=== PATIENT | female | born 1965 | race Caucasian/White ===

== ENCOUNTER 2017-05-20 19:32 | Emergency (ER) | payer BC ==
[~2017-05-20] VITALS: Ht 157.5 cm; Wt 86.0 kg
[~2017-05-20 19:32] MED LIST: ACET325T33 PO; CYCL-117 PO; METF500T4 PO; OMEP20TA42 PO
[2017-05-20 20:02] VITALS: Ht 157.5 cm; Wt 86.0 kg
[2017-05-20] MEDS ORDERED: TRIMETHOPRIM/SULFAMETHOX (DS) TAB PO ONE (22:00)
[2017-05-20] MEDS ORDERED: SULF1TAB31 PO (22:00)
[2017-05-20] MEDS ORDERED: CEPHALEXIN 500 MG CAP PO ONE (22:00)
--- NOTE | 2017-05-20 22:00 | ERD ---
ER Documentation Chief Complaint Date/Time DATE: 05/20/17 Chief Complaint Swelling/redness to upper back HPI The patient is a 51-year-old male with a history of diabetes mellitus, hyperlipidemia and vasculitis, who presents to the Emergency Department with complaint of upper back pain and swelling. The patient reports that for a "long time" she has had a sebaceous cyst to her upper back. Approximately 8 days ago she noted increased swelling to the area, and therefore tried to pop the cyst. However, since, she has developed increased pain, swelling and tenderness to the area. She admits to mild associated warmth and erythema as well. She rates her current pain as 7/10, noting that she has not yet taken any medication for pain relief. Due to her symptoms, she saw her primary medical provider for evaluation, who stated that he will request authorization to send her to a petroleum refinery worker for removal. The patient notes that she has not yet received the authorization, and therefore presents for evaluation. She denies any fevers, sweats, chills, nausea, vomiting. Denies any bleeding or purulent drainage from the site. No other complaints at this time. ROS All systems reviewed and are negative except as per history of present illness. Medications Home Meds Active Scripts Ibuprofen* (Motrin*) 600 Mg Tab, 600 MG PO Q6, #20 TAB Prov:IMAN MAC PA-C 05/20/17 Cephalexin* (Cephalexin*) 500 Mg Capsule, 500 MG PO Q6, #28 CAP Prov:IMAN MAC PA-C 05/20/17 Sulfamethoxazole/Trimethoprim* (Bactrim Ds* Tablet) 1 Each Tablet, 1 TAB PO BID , #10 TAB Prov:IMAN MAC PA-C 05/20/17 Acetaminophen* (Tylenol*) 325 Mg Tablet, 1 TAB PO Q6 Y for PAIN AND OR ELEVATED TEMP, #20 TAB Prov:NATALY VERDUGO PA-C 07/15/16 Reported Medications Omeprazole (Omeprazole) 20 Mg Tablet.dr, 20 MG PO BID 04/01/12 Cyclobenzaprine Hcl (Flexeril) 10 Mg Tablet, 1 TAB PO TID PRN PAIN 03/31/12 Metformin Hcl* (Metformin Hcl*) 500 Mg Tablet, 500 MG PO BID, 0 Refills 04/05/11 Allergies Allergies: Coded Allergies: No Known Drug Allergies (Verified Allergy, 03/31/12) PMhx/Soc History of Surgery: Yes (CHOLECYSTECTOMY) Anesthesia Reaction: No Hx Neurological Disorder: No Hx Respiratory Disorders: No Hx Cardiac Disorders: No Hx Psychiatric Problems: No Hx Miscellaneous Medical Probl: Yes (VASCULITIS, DM) Hx Alcohol Use: No Hx Substance Use: No Hx Tobacco Use: No Physical Exam Vitals Vital Signs Date Time Temp Pulse Resp B/P Pulse Ox O2 Delivery O2 Flow Rate FiO2 05/20/17 23:07 97.6 62 18 136/73 97 Room Air 05/20/17 20:02 98.8 78 19 151/84 100 Physical Exam Const: Well-developed, well-nourished, in no acute distress. Head: Atraumatic Eyes: Normal Conjunctiva ENT: Normal External Ears, Nose and Mouth. Neck: Full range of motion. Supple. Resp: Clear to auscultation bilaterally Cardio: Regular rate and rhythm Abd: Soft, non tender, non distended. Normal bowel sounds Skin: Sebaceous cyst to the upper back with mild overlying erythema, warmth, swelling and tenderness. Central induration noted, with no current fluctuance. No drainage. No bleeding. No lymphatic streaking. Back: No midline or flank tenderness Ext: No clubbing, cyanosis, or edema Neur: Awake and alert Psych: Cooperative. Appropriate. Results 24 hrs Current Medications Medications (Trade) Dose Ordered Sig/Daron Route PRN Reason Start Time Stop Time Status Last Admin Dose Admin Trimethoprim/ Sulfamethoxazole (Bactrim (Ds)) 1 tab ONCE ONCE PO 05/20/17 22:00 05/20/17 22:01 DC 05/20/17 23:07 Cephalexin (Keflex) 500 mg ONCE ONCE PO 05/20/17 22:00 05/20/17 22:01 DC 05/20/17 23:06 Procedures/MDM This is a 51-year-old female presenting to the Emergency Department with an infected sebaceous cyst to the upper back. The patient notes that she has had this cyst for some time, but tried to pop it 8 days ago. Since, she has developed increased discomfort and swelling to the area. The area was firm and indurated, with no palpable fluctuance. No drainage. No bleeding. No lymphatic streaking. No crepitus. No pain out of proportion to examination. The patients oropharynx and airway were stable, and she was afebrile with no recent history of fevers or chills. The patient was given a dose of Bactrim DS and Keflex in the ED. At this time, patient's sebaceous cyst has no fluctuance, and therefore no indication for I&D at this time. The patient is in stable condition and therefore can be discharged home with prescriptions for Ibuprofen , Keflex and Bactrim DS and strict return precautions for signs of deteriorating or worsening condition. The patient is strongly advised to follow up with a primary care provider within 2 days for reevaluation and further management, or return to the ER sooner for worsening symptoms. Additionally, she is advised to return sooner if she notices the erythema spreading beyond the current borders. I shared my medical decision making and plan with the patient and she verbally understands and agrees with the plan for further observation and care as an outpatient. At the time of discharge all questions were answered. Departure Diagnosis: Primary Impression: Infected sebaceous cyst Condition: Stable Patient Instructions: Sebaceous Cyst, Infected (Abx Tx) Additional Instructions: Call your primary care doctor TOMORROW for an appointment during the next 1-2 days.See the doctor sooner or return here if your condition worsens before your appointment time. Return to the ED sooner for any worsening symptoms, spreading redness, vomiting, fevers. IMAN MAC PA-C May 20, 2017 22:00
[2017-05-20] MEDS ORDERED: IBUP-1542 PO (22:01)
[2017-05-20] MEDS ORDERED: CEPH500C PO (22:01)
[2017-05-20 23:07] VITALS: BP 136/73; PULSE 62; RESP 18; TEMP 97.6
[2017-05-26] MEDS ORDERED: ACET1TAB40 PO (18:26)
== END 2017-05-20 23:15 | disposition home or self-care (01) ==
LOC: FTE 19:32
DX: L72.3 Sebaceous cyst (principal); E11.9 Type 2 diabetes mellitus without complications; Z79.84 Long term (current) use of oral hypoglycemic drugs
CPT/HCPCS: 99284; Z7610

== ENCOUNTER 2017-05-28 13:56 | Emergency (ER) | payer BC ==
[~2017-05-28] VITALS: Wt 85.0 kg
[~2017-05-28 13:56] MED LIST changes: +ACET1TAB40 PO; +ATOR20TA38 PO; +CEPH500C PO; +GABA-526 PO; +IBUP-1542 PO; +OMEP40CA6 PO; +SULF1TAB31 PO
[2017-05-28] MEDS ORDERED: SULF1TAB31 PO (14:59)
[2017-05-28] MEDS ORDERED: CEPH-443 PO (14:59)
--- NOTE | 2017-05-28 15:22 | ERD ---
ER Documentation Chief Complaint Date/Time DATE: 05/28/17 TIME: 15:16 Chief Complaint ABSCESS RECHECK HPI 51-year-old female coming in for abscess recheck. Patient has packing in place that was inserted 2 days ago. Denies fever. Has taken medication but has finished medication. Abscess started 1 week ago. Has pain around the wound site. ROS All systems reviewed and are negative except as per history of present illness. Medications Home Meds Active Scripts Cephalexin* (Keflex*) 500 Mg Capsule, 500 MG PO QID for 7 Days, CAP Prov:STACY WEAVER PA-C 05/28/17 Sulfamethoxazole/Trimethoprim* (Bactrim Ds* Tablet) 1 Each Tablet, 1 TAB PO BID , #14 TAB Prov:STACY WEAVER PA-C 05/28/17 Reported Medications Gabapentin* (Gabapentin*) 600 Mg Tablet, 1200 MG PO TID, TAB 02/23/14 Atorvastatin Calcium* (Atorvastatin Calcium*) 20 Mg Tablet, 20 MG PO DAILY, TAB 02/23/14 Omeprazole* (Omeprazole*) 40 Mg Capsule.dr, 20 MG PO BID, CAP 02/23/14 Metformin* (Glucophage*) 500 Mg Tab, 500 MG PO BID, TAB 02/23/14 Allergies Allergies: Coded Allergies: No Known Allergy (Unverified , 02/23/14) PMhx/Soc History of Surgery: Yes (CHOLECYSTECTOMY) Anesthesia Reaction: No Hx Neurological Disorder: No Hx Respiratory Disorders: No Hx Cardiac Disorders: Yes (VASCULITIS 2003) Hx Psychiatric Problems: No Hx Miscellaneous Medical Probl: Yes (HIGH CHOLESTEROL dm) Hx Alcohol Use: No Hx Substance Use: No Hx Tobacco Use: No Physical Exam Vitals Vital Signs Date Time Temp Pulse Resp B/P Pulse Ox O2 Delivery O2 Flow Rate FiO2 05/28/17 14:01 98.0 78 18 128/75 99 Physical Exam GENERAL: The patient is well-appearing, well-nourished, in no acute distress CHEST: Clear to auscultation bilaterally. There are no rales, wheezes or rhonchi. HEART: Regular rate and rhythm. No murmurs, clicks, rubs or gallops. No S3 or S4. ABDOMEN:Soft, nontender and nondistended. Good bowel sounds. No rebound or guarding. No gross peritonitis. No gross organomegaly or masses. No Jang sign or McBurney point tenderness. BACK: No midline or flank tenderness. SKIN: Abscess with incision and drainage and packing noted mid upper back. No purulence extracted. No surrounding fluctuance. No induration. Mild erythema surrounding incision site Procedures/MDM ER Course: Previous packing removed. Site clean. New packing placed with pressure bandage and Tegaderm. MDM: 51-year-old female complaining of abscess. Site is healing well with no worsening infection noted. I have low suspicion for deep tracking abscess. Patient will be written more medication and told to return in 2 days for repacking. Patient tolerated procedure today well and vital signs are stable. Patient was given strict ER precautions Departure Diagnosis: Primary Impression: Abscess Condition: Stable Patient Instructions: Abscess Drainage Referrals: [facility] YOU HAVE RECEIVED A MEDICAL SCREENING EXAM AND THE RESULTS INDICATE THAT YOU DO NOT HAVE A CONDITION THAT REQUIRES URGENT TREATMENT IN THE EMERGENCY DEPARTMENT. FURTHER EVALUATION AND TREATMENT OF YOUR CONDITION CAN WAIT UNTIL YOU ARE SEEN IN YOUR DOCTORS OFFICE WITHIN THE NEXT 1-2 DAYS. IT IS YOUR RESPONSIBILITY TO MAKE AN APPOINTMENT FOR FOLOW-UP CARE. IF YOU HAVE A PRIMARY DOCTOR --you should call your primary doctor and schedule an appointment IF YOU DO NOT HAVE A PRIMARY DOCTOR YOU CAN CALL OUR PHYSICIAN REFERRAL HOTLINE AT IF YOU CAN NOT AFFORD TO SEE A PHYSICIAN YOU CAN CHOSE FROM THE FOLLOWING [facility] CLINICS [facility] [address] [facility]. [facility] [address] [facility] [facility] [address] [facility]. [facility] [address] [facility]. [facility] [address] [facility]. [facility] [address] Additional Instructions: FOLLOW UP WITH YOUR PRIMARY CARE PHYSICIAN TOMORROW.Return to this facility if you are not improving as expected. STACY WEAVER PA-C May 28, 2017 15:22
== END 2017-05-28 15:41 | disposition home or self-care (01) ==
LOC: FTE 13:56 → MERGE 13:56 → FTE 15:41
DX: L02.212 Cutaneous abscess of back [any part, except buttock and flank] (principal); E11.9 Type 2 diabetes mellitus without complications; Z79.84 Long term (current) use of oral hypoglycemic drugs
CPT/HCPCS: 99284

== ENCOUNTER 2017-05-30 13:31 | Emergency (ER) | payer BC ==
[~2017-05-30] VITALS: Ht 152.4 cm; Wt 85.5 kg
[~2017-05-30 13:31] MED LIST changes: +CEPH-443 PO
[2017-05-30 14:04] VITALS: Ht 152.4 cm; Wt 85.5 kg
--- NOTE | 2017-05-30 14:39 | ERA ---
ER Documentation Chief Complaint Date/Time DATE: 05/30/17 TIME: 14:35 Chief Complaint UPPER MIDDLE BACK WOUND TOLD TO RETURN FOR WOUND CARE HPI Otherwise healthy 51-year-old female presenting 2 days status post wound packing. Patient denies any fever, chills, or complications with the wound. Has not changed the dressing. Patient has no other complaints and describes no other associated manifestations. Nursing notes have been reviewed and are consistent with history given. ROS All systems reviewed and are negative except as per history of present illness. Medications Home Meds Active Scripts Cephalexin* (Keflex*) 500 Mg Capsule, 500 MG PO QID for 7 Days, CAP Prov:STACY WEAVER PA-C 05/28/17 Sulfamethoxazole/Trimethoprim* (Bactrim Ds* Tablet) 1 Each Tablet, 1 TAB PO BID , #14 TAB Prov:STACY WEAVER PA-C 05/28/17 Acetaminophen with Codeine (Acetaminophen-Cod #3 Tablet) 1 Each Tablet, 1 TAB PO Q6H Y for PAIN, #12 TAB Prov:KAMRAN GRANADOS MD 05/26/17 Ibuprofen* (Motrin*) 600 Mg Tab, 600 MG PO Q6, #20 TAB Prov:IMAN MAC PA-C 05/20/17 Cephalexin* (Cephalexin*) 500 Mg Capsule, 500 MG PO Q6, #28 CAP Prov:IMAN MAC PA-C 05/20/17 Sulfamethoxazole/Trimethoprim* (Bactrim Ds* Tablet) 1 Each Tablet, 1 TAB PO BID , #10 TAB Prov:IMAN MAC PA-C 05/20/17 Acetaminophen* (Tylenol*) 325 Mg Tablet, 1 TAB PO Q6 Y for PAIN AND OR ELEVATED TEMP, #20 TAB Prov:NATALY VERDUGO PA-C 07/15/16 Reported Medications Gabapentin* (Gabapentin*) 600 Mg Tablet, 1200 MG PO TID, TAB 02/23/14 Atorvastatin Calcium* (Atorvastatin Calcium*) 20 Mg Tablet, 20 MG PO DAILY, TAB 02/23/14 Omeprazole* (Omeprazole*) 40 Mg Capsule.dr, 20 MG PO BID, CAP 02/23/14 Metformin* (Glucophage*) 500 Mg Tab, 500 MG PO BID, TAB 02/23/14 Omeprazole (Omeprazole) 20 Mg Tablet.dr, 20 MG PO BID 04/01/12 Cyclobenzaprine Hcl (Flexeril) 10 Mg Tablet, 1 TAB PO TID PRN PAIN 03/31/12 Metformin Hcl* (Metformin Hcl*) 500 Mg Tablet, 500 MG PO BID, 0 Refills 04/05/11 Allergies Allergies: Coded Allergies: No Known Drug Allergies (Verified Allergy, Unknown, 05/26/17) PMhx/Soc History of Surgery: Yes (CHOLECYSTECTOMY) Anesthesia Reaction: No Hx Neurological Disorder: No Hx Respiratory Disorders: No Hx Cardiac Disorders: Yes (VASCULITIS 2002) Hx Psychiatric Problems: No Hx Miscellaneous Medical Probl: Yes (HIGH CHOLESTEROL dm) Hx Alcohol Use: No Hx Substance Use: No Hx Tobacco Use: No Physical Exam Vitals Vital Signs Date Time Temp Pulse Resp B/P Pulse Ox O2 Delivery O2 Flow Rate FiO2 05/30/17 14:04 98.5 76 17 132/68 97 Physical Exam Const: Overweight 51-year-old female in no acute distress Head: Atraumatic Eyes: Normal Conjunctiva ENT: Normal External Ears, Nose and Mouth. Neck: Full range of motion..~ No meningismus. Resp: Clear to auscultation bilaterally Cardio: Regular rate and rhythm, no murmurs Abd: Soft, non tender, non distended. Normal bowel sounds Skin: 1 cm incision. No active draining. Packing sticking out of the wound. No induration or erythema. No warmth to touch. No streaking or signs of spreading infection. Back: No midline or flank tenderness Ext: No cyanosis, or edema Neur: Awake and alert Psych: Normal Mood and Affect Procedures/MDM 51-year-old female presenting to the status post wound packing for wound check. No complications. Packing was removed. No signs of systemic infection. I have little suspicion for necrotizing fasciitis, cellulitis, systemic infection , or other serious bacterial infections. I have spoke with the patient regarding their condition and future management. They have verbally responded that they understand their status and treatment plan including the necessity of following up for another wound evaluation in the next 2-3 days with PCP.. The patients vitals are stable, and their current condition is appropriate for discharge. The patient will be given discharge instructions with return precautions. Departure Diagnosis: Primary Impression: Encounter for wound re-check Condition: Stable Additional Instructions: Donny un seguimiento con almanzar PCP dentro de los prximos 1-3 ramos para crispin evaluaci n ms completa y crispin posible derivacin a un especialista. Devuelva el departamento de emergencia inmediatamente si los sntomas empeoran o cambian. Si tiene alguna pregunta con respecto a los medicamentos, consulte con almanzar farmac utico o con nosotros antes de salir. Si se producen reacciones adversas mientras viviana ewa medicamentos, suspenda el tratamiento y regrese inmediatamente al servicio de urgencias. [place] ewa medicamentos segn las indicaciones y complete el curso completo del tratamiento. TOVA LUCIANO PA-C May 30, 2017 14:39
== END 2017-05-30 15:30 | disposition home or self-care (01) ==
LOC: FTE 13:31
DX: Z48.01 Encounter for change or removal of surgical wound dressing (principal); E11.9 Type 2 diabetes mellitus without complications; Z79.84 Long term (current) use of oral hypoglycemic drugs
CPT/HCPCS: 99281

== ENCOUNTER 2017-06-01 08:38 | Emergency (ER) | payer BC ==
[~2017-06-01] VITALS: Ht 152.4 cm; Wt 80.0 kg
[2017-06-01 08:41] VITALS: Ht 152.4 cm; Wt 80.0 kg
--- NOTE | 2017-06-01 11:28 | ERA ---
ER Documentation Chief Complaint Date/Time DATE: 06/01/17 TIME: 11:25 Chief Complaint back wound check HPI 51-year-old female presents for wound check. Patient was evaluated 2 days ago. Patient states that she has had no complications. Minimal discharge from the area. No current pain. No fever. Still taking the antibiotics. Patient has no other complaints and describes no other associated manifestations. Nursing notes have been reviewed and are consistent with history given. ROS All systems reviewed and are negative except as per history of present illness. Medications Home Meds Active Scripts Cephalexin* (Keflex*) 500 Mg Capsule, 500 MG PO QID for 7 Days, CAP Prov:STACY WEAVER PA-C 05/28/17 Sulfamethoxazole/Trimethoprim* (Bactrim Ds* Tablet) 1 Each Tablet, 1 TAB PO BID , #14 TAB Prov:STACY WEAVER PA-C 05/28/17 Acetaminophen with Codeine (Acetaminophen-Cod #3 Tablet) 1 Each Tablet, 1 TAB PO Q6H Y for PAIN, #12 TAB Prov:KAMRAN GRANADOS MD 05/26/17 Ibuprofen* (Motrin*) 600 Mg Tab, 600 MG PO Q6, #20 TAB Prov:IMAN MAC PA-C 05/20/17 Cephalexin* (Cephalexin*) 500 Mg Capsule, 500 MG PO Q6, #28 CAP Prov:IMAN MAC PA-C 05/20/17 Sulfamethoxazole/Trimethoprim* (Bactrim Ds* Tablet) 1 Each Tablet, 1 TAB PO BID , #10 TAB Prov:IMAN MAC PA-C 05/20/17 Acetaminophen* (Tylenol*) 325 Mg Tablet, 1 TAB PO Q6 Y for PAIN AND OR ELEVATED TEMP, #20 TAB Prov:NATALY VERDUGO PA-C 07/15/16 Reported Medications Gabapentin* (Gabapentin*) 600 Mg Tablet, 1200 MG PO TID, TAB 02/23/14 Atorvastatin Calcium* (Atorvastatin Calcium*) 20 Mg Tablet, 20 MG PO DAILY, TAB 02/23/14 Omeprazole* (Omeprazole*) 40 Mg Capsule.dr, 20 MG PO BID, CAP 02/23/14 Metformin* (Glucophage*) 500 Mg Tab, 500 MG PO BID, TAB 02/23/14 Omeprazole (Omeprazole) 20 Mg Tablet.dr, 20 MG PO BID 04/01/12 Cyclobenzaprine Hcl (Flexeril) 10 Mg Tablet, 1 TAB PO TID PRN PAIN 03/31/12 Metformin Hcl* (Metformin Hcl*) 500 Mg Tablet, 500 MG PO BID, 0 Refills 04/05/11 Allergies Allergies: Coded Allergies: No Known Drug Allergies (Verified Allergy, Unknown, 05/26/17) PMhx/Soc History of Surgery: Yes (CHOLECYSTECTOMY) Anesthesia Reaction: No Hx Neurological Disorder: No Hx Respiratory Disorders: No Hx Cardiac Disorders: Yes (VASCULITIS 2002) Hx Psychiatric Problems: No Hx Miscellaneous Medical Probl: Yes (HIGH CHOLESTEROL dm) Hx Alcohol Use: No Hx Substance Use: No Hx Tobacco Use: No Physical Exam Vitals Vital Signs Date Time Temp Pulse Resp B/P Pulse Ox O2 Delivery O2 Flow Rate FiO2 06/01/17 08:41 98.1 72 18 135/63 99 Physical Exam Const: Overweight 51-year-old female no acute distress Head: Atraumatic Eyes: Normal Conjunctiva ENT: Normal External Ears, Nose and Mouth. Neck: Full range of motion..~ No meningismus. Resp: Clear to auscultation bilaterally Cardio: Regular rate and rhythm, no murmurs Abd: Soft, non tender, non distended. Normal bowel sounds Skin: 2 cm erythematous wound. Minimal tenderness to palpation. Minimal discharge. Improvement since last evaluation. Back: No midline or flank tenderness Ext: No cyanosis, or edema Neur: Awake and alert Psych: Normal Mood and Affect Procedures/MDM 51-year-old female presenting for wound check. Wound is improved. Minimal discharge and tenderness palpation as described in history and physical examination. Patient still taking antibiotics. I will suspicion for spreading infection or systemic involvement at this time. Patient has been advised to continue antibiotics and return to the emergency department if anything worsens. Patient's vitals are stable and her current condition is appropriate for discharge. Will be given discharge instructions and return precautions per Departure Diagnosis: Primary Impression: Encounter for wound re-check Condition: Stable Patient Instructions: Wound Care Additional Instructions: Donny un seguimiento con almanzar PCP dentro de los prximos 1-3 ramos para crispin evaluaci n ms completa y crispin posible derivacin a un especialista. Devuelva el departamento de emergencia inmediatamente si los sntomas empeoran o cambian. Si tiene alguna pregunta con respecto a los medicamentos, consulte con almanzar farmac utico o con nosotros antes de salir. Si se producen reacciones adversas mientras viviana ewa medicamentos, suspenda el tratamiento y regrese inmediatamente al servicio de urgencias. [place] ewa medicamentos segn las indicaciones y complete el curso completo del tratamiento. TOVA LUCIANO PA-C Jun 01, 2017 11:28
== END 2017-06-01 15:13 | disposition home or self-care (01) ==
LOC: FTE 08:38
DX: Z48.01 Encounter for change or removal of surgical wound dressing (principal); E11.9 Type 2 diabetes mellitus without complications; Z79.84 Long term (current) use of oral hypoglycemic drugs
CPT/HCPCS: 99281

== ENCOUNTER 2017-06-03 08:29 | Emergency (ER) | payer BC ==
[~2017-06-03] VITALS: Ht 157.5 cm; Wt 85.5 kg
[2017-06-03 08:31] VITALS: Ht 157.5 cm; Wt 85.5 kg
--- NOTE | 2017-06-03 10:27 | ERD ---
ER Documentation Chief Complaint Date/Time DATE: 06/03/17 TIME: 10:23 Chief Complaint wound check HPI 51-year-old female to ED for wound check of abscess on mid upper back. She is currently taking Bactrim and Keflex and had multiple checks for abscess drainage. Feels the abscess is improving. No fevers. Cleaning site with soap and water at home. Has never had this before. ROS All systems reviewed and are negative except as per history of present illness. Medications Home Meds Active Scripts Cephalexin* (Keflex*) 500 Mg Capsule, 500 MG PO QID for 7 Days, CAP Prov:STACY WEAVER PA-C 05/28/17 Sulfamethoxazole/Trimethoprim* (Bactrim Ds* Tablet) 1 Each Tablet, 1 TAB PO BID , #14 TAB Prov:STACY WEAVER PA-C 05/28/17 Acetaminophen with Codeine (Acetaminophen-Cod #3 Tablet) 1 Each Tablet, 1 TAB PO Q6H Y for PAIN, #12 TAB Prov:KAMRAN GRANADOS MD 05/26/17 Ibuprofen* (Motrin*) 600 Mg Tab, 600 MG PO Q6, #20 TAB Prov:IMAN MAC PA-C 05/20/17 Cephalexin* (Cephalexin*) 500 Mg Capsule, 500 MG PO Q6, #28 CAP Prov:IMAN MAC PA-C 05/20/17 Sulfamethoxazole/Trimethoprim* (Bactrim Ds* Tablet) 1 Each Tablet, 1 TAB PO BID , #10 TAB Prov:IMAN MAC PA-C 05/20/17 Acetaminophen* (Tylenol*) 325 Mg Tablet, 1 TAB PO Q6 Y for PAIN AND OR ELEVATED TEMP, #20 TAB Prov:NATALY VERDUGO PA-C 07/15/16 Reported Medications Gabapentin* (Gabapentin*) 600 Mg Tablet, 1200 MG PO TID, TAB 02/23/14 Atorvastatin Calcium* (Atorvastatin Calcium*) 20 Mg Tablet, 20 MG PO DAILY, TAB 02/23/14 Omeprazole* (Omeprazole*) 40 Mg Capsule.dr, 20 MG PO BID, CAP 02/23/14 Metformin* (Glucophage*) 500 Mg Tab, 500 MG PO BID, TAB 02/23/14 Omeprazole (Omeprazole) 20 Mg Tablet.dr, 20 MG PO BID 04/01/12 Cyclobenzaprine Hcl (Flexeril) 10 Mg Tablet, 1 TAB PO TID PRN PAIN 03/31/12 Metformin Hcl* (Metformin Hcl*) 500 Mg Tablet, 500 MG PO BID, 0 Refills 04/05/11 Allergies Allergies: Coded Allergies: No Known Drug Allergies (Verified Allergy, Unknown, 06/03/17) PMhx/Soc History of Surgery: Yes (CHOLECYSTECTOMY) Anesthesia Reaction: No Hx Neurological Disorder: No Hx Respiratory Disorders: No Hx Cardiac Disorders: Yes (VASCULITIS 2003) Hx Psychiatric Problems: No Hx Miscellaneous Medical Probl: Yes (HIGH CHOLESTEROL dm) Hx Alcohol Use: No Hx Substance Use: No Hx Tobacco Use: No Smoking Status: Never smoker Physical Exam Vitals Vital Signs Date Time Temp Pulse Resp B/P Pulse Ox O2 Delivery O2 Flow Rate FiO2 06/03/17 08:31 98.0 94 18 119/66 96 Physical Exam GENERAL: The patient is well-appearing, well-nourished, in no acute distress CHEST: Clear to auscultation bilaterally. There are no rales, wheezes or rhonchi. HEART: Regular rate and rhythm. No murmurs, clicks, rubs or gallops. No S3 or S4. BACK: Small abscess noted to mid upper back. SKIN: Small incision with mild drainage noted to upper mid back. Mild surrounding erythema. Procedures/MDM ER course: Site cleaned with normal saline. 1/4 inch iodoform packing placed in I&D site. Pressure bandage with Tegaderm applied. MDM: 51-year-old female presenting for a wound check of abscess site on mid back. I have low suspicion for worsening abscess. I have low suspicion for sepsis. Patient had iodoform packing placed and is recommended to return in 2 days for wound check. I do not feel that there is indication for further incision and drainage at this time. Patient's wound site appears to be improving. Departure Diagnosis: Primary Impression: Encounter for wound re-check Condition: Stable Patient Instructions: Wound Packing Referrals: COMM[facility] CLINICS YOU HAVE RECEIVED A MEDICAL SCREENING EXAM AND THE RESULTS INDICATE THAT YOU DO NOT HAVE A CONDITION THAT REQUIRES URGENT TREATMENT IN THE EMERGENCY DEPARTMENT. FURTHER EVALUATION AND TREATMENT OF YOUR CONDITION CAN WAIT UNTIL YOU ARE SEEN IN YOUR DOCTORS OFFICE WITHIN THE NEXT 1-2 DAYS. IT IS YOUR RESPONSIBILITY TO MAKE AN APPOINTMENT FOR FOLOW-UP CARE. IF YOU HAVE A PRIMARY DOCTOR --you should call your primary doctor and schedule an appointment IF YOU DO NOT HAVE A PRIMARY DOCTOR YOU CAN CALL OUR PHYSICIAN REFERRAL HOTLINE AT IF YOU CAN NOT AFFORD TO SEE A PHYSICIAN YOU CAN CHOSE FROM THE FOLLOWING [facility] CLINICS [facility] [address] [facility] [address] [facility] [facility] [address] [facility] [address] [facility] [facility] [address] [facility] [address] [facility] [facility] [address] Additional Instructions: FOLLOW UP WITH YOUR PRIMARY CARE PHYSICIAN TOMORROW.Return to this facility if you are not improving as expected. STACY WEAVER PA-C Jun 03, 2017 10:27
== END 2017-06-03 09:20 | disposition home or self-care (01) ==
LOC: FTE 08:29
DX: Z48.01 Encounter for change or removal of surgical wound dressing (principal); E11.9 Type 2 diabetes mellitus without complications; Z79.84 Long term (current) use of oral hypoglycemic drugs
CPT/HCPCS: 99281

== ENCOUNTER 2017-06-05 09:39 | Emergency (ER) | payer BC ==
[~2017-06-05] VITALS: Ht 162.6 cm; Wt 85.0 kg
[2017-06-05 09:47] VITALS: Ht 162.6 cm; Wt 85.0 kg
--- NOTE | 2017-06-05 10:57 | ERD ---
ER Documentation Chief Complaint Date/Time DATE: 06/05/17 TIME: 10:53 Chief Complaint Pt here for 48 hour wound check to I and D area on upper back. HPI This is a 51-year-old female who presents the emergency department today with her son for a wound check of an abscess that she had drained a long time ago. Denies any fevers or chills. States she has completed her course of antibiotics. ROS All systems reviewed and are negative except as per history of present illness. Medications Home Meds Active Scripts Cephalexin* (Keflex*) 500 Mg Capsule, 500 MG PO QID for 7 Days, CAP Prov:STACY WEAVER PA-C 05/28/17 Sulfamethoxazole/Trimethoprim* (Bactrim Ds* Tablet) 1 Each Tablet, 1 TAB PO BID , #14 TAB Prov:STACY WEAVER PA-C 05/28/17 Acetaminophen with Codeine (Acetaminophen-Cod #3 Tablet) 1 Each Tablet, 1 TAB PO Q6H Y for PAIN, #12 TAB Prov:KAMRAN GRANADOS MD 05/26/17 Ibuprofen* (Motrin*) 600 Mg Tab, 600 MG PO Q6, #20 TAB Prov:IMAN MAC PA-C 05/20/17 Cephalexin* (Cephalexin*) 500 Mg Capsule, 500 MG PO Q6, #28 CAP Prov:IMAN MAC PA-C 05/20/17 Sulfamethoxazole/Trimethoprim* (Bactrim Ds* Tablet) 1 Each Tablet, 1 TAB PO BID , #10 TAB Prov:IMAN MAC PA-C 05/20/17 Acetaminophen* (Tylenol*) 325 Mg Tablet, 1 TAB PO Q6 Y for PAIN AND OR ELEVATED TEMP, #20 TAB Prov:NATALY VERDUGO PA-C 07/15/16 Reported Medications Gabapentin* (Gabapentin*) 600 Mg Tablet, 1200 MG PO TID, TAB 02/23/14 Atorvastatin Calcium* (Atorvastatin Calcium*) 20 Mg Tablet, 20 MG PO DAILY, TAB 02/23/14 Omeprazole* (Omeprazole*) 40 Mg Capsule.dr, 20 MG PO BID, CAP 02/23/14 Metformin* (Glucophage*) 500 Mg Tab, 500 MG PO BID, TAB 02/23/14 Omeprazole (Omeprazole) 20 Mg Tablet.dr, 20 MG PO BID 04/01/12 Cyclobenzaprine Hcl (Flexeril) 10 Mg Tablet, 1 TAB PO TID PRN PAIN 03/31/12 Metformin Hcl* (Metformin Hcl*) 500 Mg Tablet, 500 MG PO BID, 0 Refills 04/05/11 Allergies Allergies: Coded Allergies: No Known Drug Allergies (Verified Allergy, Unknown, 06/03/17) PMhx/Soc History of Surgery: Yes (CHOLECYSTECTOMY) Anesthesia Reaction: No Hx Neurological Disorder: No Hx Respiratory Disorders: No Hx Cardiac Disorders: Yes (VASCULITIS 2003) Hx Psychiatric Problems: No Hx Miscellaneous Medical Probl: Yes (HIGH CHOLESTEROL dm) Hx Alcohol Use: No Hx Substance Use: No Hx Tobacco Use: No Physical Exam Vitals Vital Signs Date Time Temp Pulse Resp B/P Pulse Ox O2 Delivery O2 Flow Rate FiO2 06/05/17 09:47 98.1 74 18 126/68 95 Physical Exam Const: NAD Head: Atraumatic Eyes: Normal Conjunctiva ENT: Normal External Ears, Nose and Mouth. Neck: Full range of motion..~ No meningismus. Resp: Clear to auscultation bilaterally Cardio: Regular rate and rhythm, no murmurs Skin: Evidence of abscess and drainage of abscess mid back. No erythema. No purulent drainage. Back: No midline or flank tenderness Ext: No cyanosis, or edema Neur: Awake and alert Psych: Normal Mood and Affect Procedures/MDM This is a 51-year-old female who presents the emergency department today for a wound check of an abscess that she had drained a while ago. Upon review of patient's medical record she has been seen here 7 times for likely what was an infected sebaceous cyst. On her last visit two days ago packing had been placed. Patient is afebrile and otherwise well-appearing. I did remove the packing here in the emergency department. I do not feel that the wound needs repacking. There is no purulent drainage, erythema or warmth. Low suspicion for sepsis, deep space tracking infection. I have instructed the patient that she may keep her appointment with her primary care doctor that she has scheduled for 5 days from now. Wound was redressed here in the emergency department. Patient has completed her course of antibiotics. At this time the patient is stable for discharge and outpatient management. Patient should follow up with their PCP in the next 1-2 days. They may return to the emergency department sooner for any persistent or worsening of symptoms. Patient and son understood and agreed with the plan. Departure Diagnosis: Primary Impression: Encounter for wound re-check Condition: Fair Patient Instructions: Wound Care Referrals: your PCP Additional Instructions: Llame al doctor MAANA y man crispin MUNIR PARA DENTRO DE 1-2 YAO.Dgale a la secretaria que nosotros le instruimos hacer esta munir.Avise o llame si almanzar condicin se empeora antes de la munir. Regresa aqui si peor o no mejor. Follow-up with your doctor as planned in 5 days Keep wound clean SONYA ALY PA-C Jun 05, 2017 10:57
== END 2017-06-05 11:22 | disposition home or self-care (01) ==
LOC: FTE 09:39
DX: Z48.01 Encounter for change or removal of surgical wound dressing (principal); E11.9 Type 2 diabetes mellitus without complications; Z79.84 Long term (current) use of oral hypoglycemic drugs
CPT/HCPCS: 99281

== ENCOUNTER 2017-09-03 18:28 | Emergency (ER) | END 2017-09-04 00:40 | disposition home or self-care (01) ==